=== PATIENT | female | born 1985 | race Caucasian/White ===

== ENCOUNTER 2018-01-13 08:52 | Emergency (ER) | payer MEDICAID ==
[~2018-01-13] VITALS: Ht 165.1 cm; Wt 91.8 kg
[2018-01-13 08:55] VITALS: BP 129/91
[2018-01-13] MEDS ORDERED: DIAZEPAM 5 MG TABLET ONE (10:29)
[2018-01-13] MEDS ORDERED: OXYcodone/APAP 5/325MG TABLET ONE (10:30)
[2018-01-13] MEDS ORDERED: DIAZEPAM 5 MG TABLET PO ONE (10:30)
[2018-01-13] MEDS ORDERED: KETOROLAC 30 MG/1 ML IM ONE (10:30)
[2018-01-13] MEDS ORDERED: OXYcodone/APAP 5/325MG TABLET PO ONE (10:30)
[2018-01-13] MEDS ORDERED: KETOROLAC 30 MG/1 ML ONE (10:30)
== END 2018-01-13 11:17 | disposition home or self-care (01) ==
LOC: ED 11:10
DX: S39.012A Strain of muscle, fascia and tendon of lower back, initial encounter (principal); S16.1XXA Strain of muscle, fascia and tendon at neck level, initial encounter; I10 Essential (primary) hypertension; X50.9XXA Other and unspecified overexertion or strenuous movements or postures, initial encounter; Y93.89 Activity, other specified; Y92.89 Other specified places as the place of occurrence of the external cause; Y99.8 Other external cause status
CPT/HCPCS: 96372; 99283; J1885; 82962

== ENCOUNTER 2018-12-19 13:46 | Emergency (ER) | payer SELFPAY ==
[~2018-12-19] VITALS: Ht 165.1 cm; Wt 97.2 kg
[2018-12-19 14:36] LABS: BASOPHILS # (AUTO) 0.02 x10^3/uL (0-0.1); BASOPHILS % (AUTO) 0 % (0-1); EOSINOPHILS # (AUTO) 0.21 x10^3/uL (0-0.4); EOSINOPHILS % (AUTO) 2 % (1-7); LYMPHOCYTES % (AUTO) 14 % (22-44); MD NO; MEAN CORPUSCULAR HEMOGLOBIN 31.7 pg (27.0-34.8); MEAN CORPUSCULAR HGB CONC 33.2 g/dL (32.4-35.8); MEAN CORPUSCULAR VOLUME 95.4 fL (80-100); MEAN PLATELET VOLUME 7.6 fL (7.4-10.4); MONOCYTES # (AUTO) 0.36 x10^3/uL (0.2-0.8); MONOCYTES % (AUTO) 4 % (2-9); NEUTROPHILS # (AUTO) 6.97 x10^3/uL (1.8-6.8); NEUTROPHILS % (AUTO) 80 % (42-75); PLATELET COUNT 233 x10^3/uL (130-400); RED BLOOD COUNT 3.86 x10^6/uL (3.82-5.3); RED CELL DISTRIBUTION WIDTH 12.9 % (9.6-15.2)
--- NOTE | 2018-12-19 14:42 | NUR ---
Ramu boles in ED - 12/19/18 at 1506 by [facility] SBAR report received from Ehsan CHING. Pt not in room, currently in imaging.
--- NOTE | 2018-12-19 14:42 | NUR ---
SBAR report received from RN, Ehsan. Pt resting on gurney, aware of need for urine sample, pt states she's currently too dizzy to provide urine.
[2018-12-19 14:47] LABS: ALANINE AMINOTRANSFERASE 20 U/L (12-78); ALBUMIN 3.4 g/dL (3.4-5.0); ANION GAP 5 mmol/L (5-15); CALCIUM 8.9 mg/dL (8.5-10.1); CHLORIDE 107 mmol/L (98-107); CREATININE 0.97 mg/dL (0.55-1.02)
[2018-12-19 14:51] LABS: ALKALINE PHOSPHATASE 56 U/L (45-117); BILIRUBIN,TOTAL 0.8 mg/dL (0.2-1.0); TOTAL PROTEIN 7.3 g/dL (6.4-8.2)
--- NOTE | 2018-12-19 15:06 | NUR ---
Pt ambulated to bathroom, steady gait, no assistance required. Urine sample requested and education provided on proper clean catch technique.
[2018-12-19 15:36] LABS: MICROSCOPIC INDICATED
[2018-12-19 15:37] LABS: CULTURE INDICATED? YES
[2018-12-19 16:24] VITALS: BP 123/69
--- NOTE | 2018-12-19 16:24 | NUR ---
Pt resting on shalonda, states "I feel really loopy." VSS.
--- NOTE | 2018-12-19 16:59 | NUR ---
Patient/Caregiver given discharge instructions and they have confirmed that they understand the instructions. Patient ambulatory with steady gait. Pt given Good Rx card and medication assistance information.
== END 2018-12-19 17:00 | disposition home or self-care (01) ==
LOC: ED 16:06
DX: N30.00 Acute cystitis without hematuria (principal); I10 Essential (primary) hypertension; F31.9 Bipolar disorder, unspecified; Z98.890 Other specified postprocedural states; Z90.49 Acquired absence of other specified parts of digestive tract
CPT/HCPCS: 36415; 80053; 81001; 84703; 85025; 87077; 87086; 87186; 99283